=== PATIENT | male | born 1960 | race African-American/Black ===

== ENCOUNTER 2022-07-27 10:21 | Emergency (ER) | payer SELFPAY ==
[~2022-07-27] VITALS: Ht 175.3 cm; Wt 73.0 kg
[2022-07-27 10:30] VITALS: BP 114/75
[2022-07-27] MEDS ORDERED: IBUPROFEN 600MG TABLET PO ONE (10:45)
[2022-07-27] MEDS ORDERED: IBUP-2029 MT (10:48)
== END 2022-07-27 11:46 | disposition home or self-care (01) ==
LOC: ER 10:38
DX: M79.672 Pain in left foot (principal); M79.671 Pain in right foot; R53.1 Weakness
CPT/HCPCS: 99283